=== PATIENT | male | born 1980 | race Asian ===

== ENCOUNTER 2019-12-01 10:27 | Emergency (ER) | payer OTHER, MEDICAID ==
[~2019-12-01] VITALS: Ht 160 cm; Wt 45.8 kg
[2019-12-01 10:39] VITALS: Ht 160 cm; Wt 45.8 kg
[2019-12-01 11:20] LABS: BASOPHIL % 0.9 % (0-2); PLATELET COUNT 244 x10^3mcL (130-400); RED CELL DISTRIBUTION WIDTH 13.8 % (11.5-14.5)
[2019-12-01 11:49] LABS: BILIRUBIN TOTAL 0.5 mg/dL (0.20-1.00); CALCIUM 9.9 mg/dL (8.5-10.1); CARBON DIOXIDE 30.5 mmol/L (21-32)
[2019-12-01 11:51] LABS: TOTAL PROTEIN, SERUM 8.3 g/dL (6.4-8.2)
[2019-12-01 11:54] LABS: CREATININE SERUM 5.7 mg/dL (0.7-1.3)
[2019-12-01 13:19] VITALS: BP 135/85
== END 2019-12-01 13:19 | disposition home or self-care (01) ==
LOC: ED 10:27
PROVIDERS: Emergency Medicine
DX: N18.9 Chronic kidney disease, unspecified (principal); R11.2 Nausea with vomiting, unspecified; Z98.890 Other specified postprocedural states